=== PATIENT | female | born 1945 | race Caucasian/White ===

== ENCOUNTER → 2016-12-11 | Outpatient (CLI) | payer OTHER, MEDICARE | LOC: FIMAGING 07:44 | PROVIDERS: ATTEND Specialist | DX: Z08 Encounter for follow-up examination after completed treatment for malignant neoplasm (principal); Z85.51 Personal history of malignant neoplasm of bladder; Z85.528 Personal history of other malignant neoplasm of kidney; Z90.5 Acquired absence of kidney ==

== ENCOUNTER 2017-02-06 16:00 | Emergency (ER) | payer OTHER, MEDICARE ==
[2017-02-06 16:08] VITALS: O2SAT 96
--- NOTE | 2017-02-06 16:15 | EDPHY ---
H & P Stated Complaint: room spinning/dizzyness and nausea/has had prob with plugging l ear Time Seen by Provider: 02/06/17 16:14 HPI/ROS: CHIEF COMPLAINT: Resolved vertigo, neck pain HISTORY OF PRESENT ILLNESS: The patient presents to the ED after an episode of resolved vertigo. The patient reportedly had this while at lunch. It began abruptly at 11:30 a.m.. It was described as fairly typical peripheral vertigo with a sensation that the room was spinning and associated nausea. Her symptoms were brief and self-limited. She did have some residual neck pain following this incident. She did report some sensation of fullness in her left ear prior to the development of vertigo. She was referred to urgent care by her primary care provider given her neck pain who then ultimately referred her to the ED for further evaluation. While in the emergency department, the patient denies any acute headache, she complains of diffuse posterior neck pain which is bilateral in nature and mild. She denies any associated numbness or weakness. She denies any ongoing symptoms of vertigo. She denies any chest pain or shortness of breath. The patient has a remote history of kidney and bladder cancer treated 9 years ago and has been disease free. REVIEW OF SYSTEMS: A comprehensive 10 point review of systems is otherwise negative aside from elements mentioned in the history of present illness. Source: Patient Exam Limitations: No limitations - Personal History Current Tetanus/Diphtheria Vaccine: Yes - Medical/Surgical History Hx Asthma: No Hx Chronic Respiratory Disease: No Hx Diabetes: No Hx Cardiac Disease: No Hx Renal Disease: Yes Hx Cirrhosis: No Hx Alcoholism: No Hx HIV/AIDS: No Hx Splenectomy or Spleen Trauma: No Other PMH: kidney/bladder cancer - Social History Smoking Status: Never smoked - Physical Exam Exam: General Appearance: Alert, no distress Eyes: Pupils equal and round no pallor or injection ENT, Mouth: Mucous membranes moist Neck: No anterior tenderness, no carotid bruit, 2+ carotid pulses noted bilaterally Respiratory: There are no retractions, lungs are clear to auscultation Cardiovascular: Regular rate and rhythm Gastrointestinal: Abdomen is soft and nontender, no masses, bowel sounds normal Neurological: A&O, normal motor function, normal sensory exam, normal cranial nerves Skin: Warm and dry, no rashes Musculoskeletal: Tenderness to palpation across the posterior cervical musculature. Extremities: symmetrical, full range of motion Constitutional: Initial Vital Signs Temperature (C) 36.5 C 02/06/17 16:05 Heart Rate 82 02/06/17 16:05 Respiratory Rate 16 02/06/17 16:05 Blood Pressure 152/107 H 02/06/17 16:05 O2 Sat (%) 96 02/06/17 16:05 O2 Delivery Mode Room Air Allergies/Adverse Reactions: No Known Allergies Allergy (Unverified 02/06/17 16:05) Home Medications: Medication Instructions Recorded NK [No Known Home Meds] 02/06/17 Medical Decision Making - Diagnostics Imaging Results: Imaging Impressions Head CT 02/06/17 17:07 Impression: Normal. Findings and recommendations discussed with Armando Bauer at 1825 hour, 02/06. Final report concurs with initial preliminary interpretation. Neck CTA 02/06/17 17:07 Impression: Normal. Note: All stenoses are calculated using NASCET Criteria. Findings and recommendations discussed with Armando Bauer at 1825 hour, 02/06. Final report concurs with initial preliminary interpretation. Head CTA 02/06/17 17:08 Impression: Normal. Findings and recommendations discussed with Armando Bauer at 1825 hour, 02/06. Final report concurs with initial preliminary interpretation. ED Course/Re-evaluation: The patient presents to the after an episode of fairly typical peripheral vertigo with some mild residual neck discomfort. Given the complaints of neck pain the patient was taken for a CT angiogram of the neck to evaluate possible dissection or vascular injury. This was negative. Given her history of malignancy, a CT brain was also ordered which demonstrated no evidence of an obvious lesion. The patient's EKG demonstrated no evidence of ischemia and the patient's troponin was within normal limits. The patient underwent serial neurologic examinations by myself in the ED over 3.5 hour period. The patient's neurologic examination remains normal. Her vital signs remained stable and her workup was unremarkable. At this point time I do feel she can be safely discharged home. There is no evidence of acute coronary syndrome, central vertigo, vascular dissection or other acute abnormality. The patient will be provided customary aftercare instructions and return precautions. Differential Diagnosis: Differential diagnosis considered includes acute coronary syndrome, peripheral vertigo, central vertigo, arrhythmia, myofascial strain, vertebral artery dissection - Data Points Laboratory Results: Laboratory Results 02/06/17 16:17 02/06/17 16:17 02/06/17 02/06/17 02/06/17 16:17 16:17 16:17 WBC 5.65 10^3/uL 10^3/uL (3.80-9.50) RBC 5.46 10^6/uL H 10^6/uL (4.18-5.33) Hgb 15.7 g/dL g/dL (12.6-16.3) Hct 46.6 % % (38.0-47.0) MCV 85.3 fL fL (81.5-99.8) MCH 28.8 pg pg (27.9-34.1) MCHC 33.7 g/dL g/dL (32.4-36.7) RDW 13.0 % % (11.5-15.2) Plt Count 266 10^3/uL 10^3/uL (150-400) MPV 11.4 fL fL (8.7-11.7) Neut % (Auto) 74.3 % H % (39.3-74.2) Lymph % (Auto) 15.8 % % (15.0-45.0) [place] % (Auto) 8.1 % % (4.5-13.0) Eos % (Auto) 0.7 % % (0.6-7.6) Baso % (Auto) 0.9 % % (0.3-1.7) Nucleat RBC Rel Count 0.0 % % (0.0-0.2) Absolute Neuts (auto) 4.20 10^3/uL 10^3/uL (1.70-6.50) Absolute Lymphs (auto) 0.89 10^3/uL L 10^3/uL (1.00-3.00) Absolute Monos (auto) 0.46 10^3/uL 10^3/uL (0.30-0.80) Absolute Eos (auto) 0.04 10^3/uL 10^3/uL (0.03-0.40) Absolute Basos (auto) 0.05 10^3/uL 10^3/uL (0.02-0.10) Absolute Nucleated RBC 0.00 10^3/uL 10^3/uL (0-0.01) Immature Gran % 0.2 % % (0.0-1.1) Immature Gran # 0.01 10^3/uL 10^3/uL (0.00-0.10) Sodium 139 mEq/L mEq/L (134-144) Potassium 4.3 mEq/L mEq/L (3.5-5.2) Chloride 99 mEq/L mEq/L (97-110) Carbon Dioxide 26 mEq/l mEq/l (22-31) Anion Gap 14 mEq/L mEq/L (8-16) BUN 19 mg/dL mg/dL (7-23) Creatinine 0.9 mg/dL mg/dL (0.6-1.0) Estimated GFR > 60 Glucose 96 mg/dL mg/dL (70-100) Calcium 10.0 mg/dL mg/dL (8.5-10.4) Troponin I < 0.012 ng/mL ng/mL (0.000-0.034) Departure - Departure Disposition: Home, Routine, Self-Care Clinical Impression: Peripheral vertigo, Cervical strain Condition: Good Instructions: Vertigo (ED) Additional Instructions: 1. Return to the emergency department for any recurrent symptoms, numbness, weakness severe headache or other concerns. 2. Return to the ED for any chest pain or shortness of breath. 3. The testing in the emergency department today demonstrates no evidence of a heart attack, stroke or vascular injury. 4. Please follow-up with your primary care provider as scheduled. Referrals: Sangeetha Escamilla MD [Primary Care Provider] - As per Instructions
--- NOTE | 2017-02-06 16:22 | CPEKG ---
Heart Rate: 77 RR Interval: 779 P-R Interval: 172 QRSD Interval: 78 QT Interval: 384 QTC Interval: 435 P [place]: 68 QRS [place]: 43 T Wave [place]: 67 EKG Severity - NORMAL ECG - EKG Impression: SINUS RHYTHM Electronically Signed By: Armando Bauer 06-Feb-2017 17:59:43
[2017-02-06 16:46] LABS: % IMMATURE GRANULYOCYTES 0.2 % (0.0-1.1); ABSOLUTE IMMATURE GRANULOCYTES 0.01 10^3/uL (0.00-0.10); ADD DIFF? NO; ADD MORPH? NO; ADD SCAN? NO; ATYPICAL LYMPHOCYTE FLAG 20 (0-99); FRAGMENT RBC FLAG 30 (0-99); HEMATOCRIT 46.6 % (38.0-47.0); HEMOGLOBIN 15.7 g/dL (12.6-16.3); LEFT SHIFT FLG 0 (0-99); LIPEMIA HEMOLYSIS FLAG 80 (0-99); MEAN CELL HEMOGLOBIN 28.8 pg (27.9-34.1); MEAN CELL HEMOGLOBIN CONCENTR. 33.7 g/dL (32.4-36.7); MEAN CELL VOLUME 85.3 fL (81.5-99.8); MEAN PLATELET VOLUME 11.4 fL (8.7-11.7); PLATELET CLUMPS FLAG 20 (0-99); PLATELET COUNT 266 10^3/uL (150-400); RED BLOOD CELL COUNT 5.46 10^6/uL (4.18-5.33)
[2017-02-06 16:52] LABS: ANION GAP 14 mEq/L (8-16); CARBON DIOXIDE 26 mEq/l (22-31); CHLORIDE 99 mEq/L (97-110); CREATININE 0.9 mg/dL (0.6-1.0); GLOMERULAR FILTRATION RATE > 60; GLUCOSE 96 mg/dL (70-100); POTASSIUM 4.3 mEq/L (3.5-5.2); SODIUM 139 mEq/L (134-144)
[2017-02-06] MEDS ORDERED: IOPAMIDOL (ISOVUE 370) 100 ML BTL IV ONE (17:45)
[2017-02-06 19:43] VITALS: BP 151/97; PULSE 78; RESP 18; TEMP 98.4
== END 2017-02-06 19:44 | disposition home or self-care (01) ==
DX: S16.1XXA Strain of muscle, fascia and tendon at neck level, initial encounter (principal); H81.399 Other peripheral vertigo, unspecified ear; Z85.51 Personal history of malignant neoplasm of bladder; Z85.528 Personal history of other malignant neoplasm of kidney; X58.XXXA Exposure to other specified factors, initial encounter
CPT/HCPCS: 70450; 70496; 70498; 93005; 99285; Q9967

== ENCOUNTER → 2017-02-26 | Outpatient (CLI) | payer OTHER, MEDICARE | LOC: FIMAGING 12:41 | PROVIDERS: ATTEND Obstetrics & Gynecology | DX: R93.8 Abnormal findings on diagnostic imaging of other specified body structures (principal) | CPT/HCPCS: 76856-PO ==

== ENCOUNTER 2017-03-23 15:00 | Observation (INO) | payer OTHER, MEDICARE ==
--- NOTE | 2017-03-23 15:14 | CPEKG ---
Heart Rate: 76 RR Interval: 789 P-R Interval: 168 QRSD Interval: 76 QT Interval: 388 QTC Interval: 437 P [place]: 65 QRS [place]: 27 T Wave [place]: 63 EKG Severity - ABNORMAL ECG - EKG Impression: SINUS RHYTHM Electronically Signed By: Janes Watters 23-Mar-2017 15:37:00
[2017-03-23] MEDS ORDERED: NS 1,000 ML IV ONE (15:25)
[2017-03-23 15:30] LABS: % IMMATURE GRANULYOCYTES 0.3 % (0.0-1.1); ABSOLUTE IMMATURE GRANULOCYTES 0.01 10^3/uL (0.00-0.10); ADD DIFF? NO; ADD MORPH? NO; ADD SCAN? NO; ATYPICAL LYMPHOCYTE FLAG 10 (0-99); FRAGMENT RBC FLAG 0 (0-99); HEMATOCRIT 45.4 % (38.0-47.0); HEMOGLOBIN 15.6 g/dL (12.6-16.3); LEFT SHIFT FLG 0 (0-99); LIPEMIA HEMOLYSIS FLAG 90 (0-99); MEAN CELL HEMOGLOBIN 29.2 pg (27.9-34.1); MEAN CELL HEMOGLOBIN CONCENTR. 34.4 g/dL (32.4-36.7); MEAN CELL VOLUME 84.9 fL (81.5-99.8); MEAN PLATELET VOLUME 10.8 fL (8.7-11.7); PLATELET CLUMPS FLAG 10 (0-99); PLATELET COUNT 242 10^3/uL (150-400); RED BLOOD CELL COUNT 5.35 10^6/uL (4.18-5.33); RED CELL DISTRIBUTION WIDTH 12.4 % (11.5-15.2)
--- NOTE | 2017-03-23 15:34 | EDPHY ---
H & P Stated Complaint: bradfordkey Time Seen by Provider: 03/23/17 15:04 HPI/ROS: CHIEF COMPLAINT: Shaky, weak HISTORY OF PRESENT ILLNESS: The patient is a 71-year-old female who comes to the emergency department by ambulance complaining if she feels shaky, weak and "off". She states that she was seen here 4 weeks ago and at that time she felt slightly dizzy. Her workup was unremarkable including a negative troponin and negative CT head and CT angio head and neck and she was able to go home. She states that she did feel better but then 2 weeks later she was getting on an airplane when she felt extremely weak, shaky, nauseous and went to the [facility]. There she had an EKG, chest x-ray, echocardiogram, CT brain and MRI of her brain done. She reports that all of these tests were negative and that she was discharged home after 8 hours. She states that she continued to feel ill and she saw her primary Dr. Sangeetha Escamilla the next day. Dr. Escamilla felt that she likely had a virus and that she would feel better after about 10 days. The patient reports that she did feel better after about 10 days and that she has felt well for the last 3 days until this morning when she again began feeling shaky, weak and nauseous again. She denies chest pain. She denies shortness of breath. She denies headache. She has mild nausea but no abdominal pain. No diarrhea. No fevers. No cough. No sore throat. No runny nose. She does have a history of kidney/ bladder cancer that was resected in 2007. She also followed up with her urologist and had 1 positive urinalysis done but 2 negative urinalysis tests and eventually agreed with her primary not to take any antibiotics. She does have frequent urination but states that this is her baseline. REVIEW OF SYSTEMS: Constitutional: denies: chills, fever, recent illness, recent injury EENTM: denies: blurred vision, double vision, nose congestion Respiratory: denies: cough, shortness of breath Cardiac: denies: chest pain, irregular heart rate, lightheadedness, palpitations Gastrointestinal/Abdominal: denies: abdominal pain, diarrhea, nausea, vomiting, blood streaked stools Genitourinary: denies: dysuria, frequency, hematuria, pain Musculoskeletal: denies: joint pain, muscle pain Skin: denies: lesions, rash, jaundice, bruising Neurological: denies: headache, numbness, paresthesia, tingling, dizziness, weakness Hematologic/Lymphatic: denies: blood clots, easy bleeding, easy bruising Immunologic/allergic: denies: HIV/AIDS, transplant EXAM: GENERAL: Well-appearing, well-nourished and in no acute distress. HEAD: Atraumatic, normocephalic. EYES: Pupils equal round and reactive to light, extraocular movements intact, sclera anicteric, conjunctiva are normal. ENT: TMs normal, nares patent, oropharynx clear without exudates. Moist mucous membranes. NECK: Normal range of motion, supple without lymphadenopathy or JVD. LUNGS: Breath sounds clear to auscultation bilaterally and equal. No wheezes rales or rhonchi. HEART: Regular rate and rhythm without murmurs, rubs or gallops. ABDOMEN: Soft, nontender, normoactive bowel sounds. No guarding, no rebound. No masses appreciated. BACK: No CVA tenderness, no spinal tenderness, step-offs or deformities EXTREMITIES: Normal range of motion, no pitting or edema. No clubbing or cyanosis. NEUROLOGICAL: Cranial nerves II through XII grossly intact. Normal speech, normal gait. 5/5 strength, normal movement in all extremities, normal sensation PSYCH: Normal mood, normal affect. SKIN: Warm, dry, normal turgor, no visible rashes or lesions. Source: Patient Exam Limitations: No limitations - Medical/Surgical History Hx Asthma: No Hx Chronic Respiratory Disease: No Hx Diabetes: No Hx Cardiac Disease: No Hx Renal Disease: Yes Hx Cirrhosis: No Hx Alcoholism: No Hx HIV/AIDS: No Hx Splenectomy or Spleen Trauma: No Other PMH: kidney/bladder cancer - Family History Significant Family History: No pertinent family hx - Social History Smoking Status: Never smoked Alcohol Use: Sober Drug Use: None Constitutional: Initial Vital Signs Temperature (C) 36.9 C 03/23/17 15:08 Heart Rate 77 03/23/17 15:08 Respiratory Rate 18 03/23/17 15:08 Blood Pressure 167/102 H 03/23/17 15:08 O2 Sat (%) 92 03/23/17 15:08 O2 Delivery Mode Room Air Allergies/Adverse Reactions: No Known Allergies Allergy (Unverified 02/06/17 16:05) Home Medications: Medication Instructions Recorded NK [No Known Home Meds] 02/06/17 Medical Decision Making - Diagnostics Imaging Results: Imaging Impressions Chest X-Ray 03/23/17 15:26 Impression: No active cardiopulmonary disease seen.. Imaging: Discussed imaging studies w/ wood heel attacher Radiologist ED Course/Re-evaluation: I was able to review the patient's previous visit here as well as her echo and MRI results in [facility]. Thus far her workup has been negative. The patient is frustrated that we are simply repeating test that have already been done. She states that today she felt so weak that she was worried she could not drive her car and so pulled over to the side of the road and called her friend to pick her up. 5:20 p.m. the patient is feeling much better. She wishes to go home. Her friend is asking about a referral to Infectious Disease. I will provide this and also encouraged him to follow up with her primary doctor. I encouraged her to return if her symptoms returned. We will have her road test prior to discharge. 5:50 p.m. the patient failed her road test. She felt extremely weak. I spoke with Dr. Charito Magallanes who will admit to the hospital service. Differential Diagnosis: Partial list of the Differential diagnosis considered include but were not limited to; infection, electrolyte abnormality and although unlikely based on the history and physical exam, I also considered medication reaction, CVA, seizure, tumor, dissection. I discussed these differential diagnoses and the plan with the patient as well as the usual and expected course. The patient understands that the diagnosis is provisional and that in medicine we are not always correct and that further workup is often warranted. Usual and customary warnings were given. All of the patient's questions were answered. The patient was instructed to return to the emergency department should the symptoms at all worsen or return, otherwise to followup with the physician as we discussed. - Data Points Laboratory Results: Laboratory Results 03/23/17 15:15 03/23/17 15:15 03/23/17 03/23/17 03/23/17 16:30 16:00 15:15 WBC RBC Hgb Hct MCV MCH MCHC RDW Plt Count MPV Neut % (Auto) Lymph % (Auto) [place] % (Auto) Eos % (Auto) Baso % (Auto) Nucleat RBC Rel Count Absolute Neuts (auto) Absolute Lymphs (auto) Absolute Monos (auto) Absolute Eos (auto) Absolute Basos (auto) Absolute Nucleated RBC Immature Gran % Immature Gran # Sodium Potassium Chloride Carbon Dioxide Anion Gap BUN Creatinine Estimated GFR Glucose Calcium Magnesium Total Bilirubin Conjugated Bilirubin Unconjugated Bilirubin AST ALT Alkaline Phosphatase Troponin I Total Protein Albumin Lipase TSH 1.280 uIU/mL uIU/mL (0.465-4.680) Urine Color PALE YELLOW Urine Appearance CLEAR Urine pH 7.0 (5.0-7.5) Ur Specific [place] 1.006 (1.002-1.030) Urine Protein NEGATIVE (NEGATIVE) Urine Ketones NEGATIVE (NEGATIVE) Urine Blood NEGATIVE (NEGATIVE) Urine Nitrate NEGATIVE (NEGATIVE) Urine Bilirubin NEGATIVE (NEGATIVE) Urine Urobilinogen NEGATIVE EU EU (0.2-1.0) Ur Leukocyte Esterase TRACE H (NEGATIVE) Urine RBC 5-10 /hpf H /hpf (0-3) Urine WBC 1-3 /hpf /hpf (0-3) Ur Epithelial Cells TRACE /lpf /lpf (NONE-1+) Urine Glucose NEGATIVE (NEGATIVE) Urine Opiates Screen NEGATIVE (NEGATIVE) Urine Barbiturates NEGATIVE (NEGATIVE) Ur Phencyclidine Scrn NEGATIVE (NEGATIVE) Ur Amphetamine Screen NEGATIVE (NEGATIVE) U Benzodiazepines Scrn NEGATIVE (NEGATIVE) Urine Cocaine Screen NEGATIVE (NEGATIVE) U Marijuana (THC) Screen NEGATIVE (NEGATIVE) Ethyl Alcohol Influenza A & B (PCR) NEGATIVE FOR FLU (NEGATIVE) 03/23/17 03/23/17 03/23/17 15:15 15:15 15:14 WBC 3.69 10^3/uL L 10^3/uL (3.80-9.50) RBC 5.35 10^6/uL H 10^6/uL (4.18-5.33) Hgb 15.6 g/dL g/dL (12.6-16.3) Hct 45.4 % % (38.0-47.0) MCV 84.9 fL fL (81.5-99.8) MCH 29.2 pg pg (27.9-34.1) MCHC 34.4 g/dL g/dL (32.4-36.7) RDW 12.4 % % (11.5-15.2) Plt Count 242 10^3/uL 10^3/uL (150-400) MPV 10.8 fL fL (8.7-11.7) Neut % (Auto) 71.1 % % (39.3-74.2) Lymph % (Auto) 17.9 % % (15.0-45.0) [place] % (Auto) 7.9 % % (4.5-13.0) Eos % (Auto) 1.4 % % (0.6-7.6) Baso % (Auto) 1.4 % % (0.3-1.7) Nucleat RBC Rel Count 0.0 % % (0.0-0.2) Absolute Neuts (auto) 2.63 10^3/uL 10^3/uL (1.70-6.50) Absolute Lymphs (auto) 0.66 10^3/uL L 10^3/uL (1.00-3.00) Absolute Monos (auto) 0.29 10^3/uL L 10^3/uL (0.30-0.80) Absolute Eos (auto) 0.05 10^3/uL 10^3/uL (0.03-0.40) Absolute Basos (auto) 0.05 10^3/uL 10^3/uL (0.02-0.10) Absolute Nucleated RBC 0.00 10^3/uL 10^3/uL (0-0.01) Immature Gran % 0.3 % % (0.0-1.1) Immature Gran # 0.01 10^3/uL 10^3/uL (0.00-0.10) Sodium 139 mEq/L mEq/L (134-144) Potassium 4.1 mEq/L mEq/L (3.5-5.2) Chloride 102 mEq/L mEq/L (97-110) Carbon Dioxide 24 mEq/l mEq/l (22-31) Anion Gap 13 mEq/L mEq/L (8-16) BUN 28 mg/dL H mg/dL (7-23) Creatinine 0.8 mg/dL mg/dL (0.6-1.0) Estimated GFR > 60 Glucose 101 mg/dL H mg/dL (70-100) Calcium 9.8 mg/dL mg/dL (8.5-10.4) Magnesium 1.9 mg/dL mg/dL (1.6-2.3) Total Bilirubin 0.5 mg/dL mg/dL (0.1-1.4) Conjugated Bilirubin 0.2 mg/dL mg/dL (0.0-0.5) Unconjugated Bilirubin 0.3 mg/dL mg/dL (0.0-1.1) AST 33 IU/L IU/L (14-46) ALT 44 IU/L IU/L (9-52) Alkaline Phosphatase 76 IU/L IU/L (38-126) Troponin I < 0.012 ng/mL ng/mL (0.000-0.034) Total Protein 7.7 g/dL g/dL (6.3-8.2) Albumin 4.7 g/dL g/dL (3.5-5.0) Lipase 208 IU/L IU/L (23-300) TSH Urine Color Urine Appearance Urine pH Ur Specific [place] Urine Protein Urine Ketones Urine Blood Urine Nitrate Urine Bilirubin Urine Urobilinogen Ur Leukocyte Esterase Urine RBC Urine WBC Ur Epithelial Cells Urine Glucose Urine Opiates Screen Urine Barbiturates Ur Phencyclidine Scrn Ur Amphetamine Screen U Benzodiazepines Scrn Urine Cocaine Screen U Marijuana (THC) Screen Ethyl Alcohol < 10 mg/dL mg/dL (0-10) Influenza A & B (PCR) Medications Given: Discontinued Medications Sodium Chloride (Ns) 1,000 mls @ 0 mls/hr IV ONCE ONE; Wide Open PRN Reason: Protocol Stop: 03/23/17 15:26 Last Admin: 03/23/17 16:10 Dose: 1,000 mls Ondansetron HCl (Zofran) 4 mg IVP ONCE ONE Stop: 03/23/17 18:24 Last Admin: 03/23/17 18:26 Dose: 4 mg Departure - Departure Disposition: [facility] In[facility] Acute Clinical Impression: Generalized weakness Condition: Fair
[2017-03-23 15:38] LABS: ALANINE AMINOTRANSFERASE 44 IU/L (9-52); ALBUMIN 4.7 g/dL (3.5-5.0); ALKALINE PHOSPHATASE 76 IU/L (38-126); ANION GAP 13 mEq/L (8-16); ASPARTATE AMINOTRANSFERASE 33 IU/L (14-46); BILIRUBIN,TOTAL 0.5 mg/dL (0.1-1.4); BILIRUBIN-CONJUGATED 0.2 mg/dL (0.0-0.5); BILIRUBIN-UNCONJUGATED 0.3 mg/dL (0.0-1.1); CALCIUM 9.8 mg/dL (8.5-10.4); CARBON DIOXIDE 24 mEq/l (22-31); CHLORIDE 102 mEq/L (97-110); CREATININE 0.8 mg/dL (0.6-1.0); GLOMERULAR FILTRATION RATE > 60; GLUCOSE 101 mg/dL (70-100); MAGNESIUM 1.9 mg/dL (1.6-2.3); POTASSIUM 4.1 mEq/L (3.5-5.2); SODIUM 139 mEq/L (134-144); TOTAL PROTEIN 7.7 g/dL (6.3-8.2)
[2017-03-23 15:49] LABS: TROPONIN I < 0.012 ng/mL (0.000-0.034)
[2017-03-23 16:05] LABS: ETHANOL SERUM < 10 mg/dL (0-10)
[2017-03-23 16:36] LABS: COLOR PALE YELLOW; LEUKOCYTE ESTERASE,URINE TRACE (NEGATIVE); NITRITE,URINE NEGATIVE (NEGATIVE)
[2017-03-23] MEDS ORDERED: ONDANSETRON 4 MG/2 ML VIAL IVP ONE (18:23)
[2017-03-23] MEDS ORDERED: ONDANSETRON 4 MG/2 ML VIAL ONE (18:24)
[2017-03-23 19:33] VITALS: RESP 16
[2017-03-23] MEDS ORDERED: ACETAMINOPHEN 325 MG TAB PO PRN (21:25)
[2017-03-23] MEDS ORDERED: ONDANSETRON 4 MG/2 ML VIAL IVP PRN (21:25)
[2017-03-23] MEDS ORDERED: ZOLPIDEM TARTRATE 5 MG TAB PO PRN (21:29)
[2017-03-23] MEDS ORDERED: HYDROCODONE/APAP 5/325 TAB PO PRN (21:29)
--- NOTE | 2017-03-23 22:22 | GHP ---
[f rep st] HISTORY AND PHYSICAL DATE OF ADMISSION: 03/23/2017 CHIEF COMPLAINT: Profound acute weakness, presyncopal spells. HISTORY: The patient is a 71-year-old female, who has had 3 visits to the emergency room in the last month due to recurrent episodes of severe profound debilitating weakness. It first started 1 month ago when she was at a coffee shop, and she developed severe vertigo. She came to the emergency room, a CT angiogram of the head and neck were negative. A few weeks later she was flying to [facility], and was at [employer] and had checked through security, when suddenly she got another attack of debilitating acu te weakness, and she could no longer walk down the corridor. Paramedics were called. She did not ge t on the flight, and she was transferred to [facility]. They observed her in the emergency room for 8 hours. They did MRI of her brain and her echo that were unremarkable. She saw her [facility] doctor, who thought she had a virus, and she should eventually start to feel better. She had a couple good days and went back to the gym, started working out again on a daily basis, and thought maybe she was over it. Today, however, she had another recurrent severe event. She when out for a m eal with a friend, and on the way home could not drive because she had another attack of such profoun d weakness. She could not even sit up in a chair. Eventually she made it home. She called a friend to come over and help her. Her friend took one look at her, and she looked so terrible that the fri end immediately called 911. She has not had recurrence of vertigo since her first event, and the [facility] er 2 events are more presyncopal with associated nausea, and just such profound weakness that she can not even sit up. She has had night sweats in the last couple of days, however nothing drenching. Abeba johnson has also recently been struggling with symptoms of urinary retention and saw Dr. Durbin, her urologi st, who initially started her on Rapaflo, but then discontinued it, said that her urinary retention s tudies were negative. PAST MEDICAL HISTORY: 1. Kidney cancer status post partial nephrectomy. 2. Transitional cell carcinoma of the bladder. 3. Low white blood cell count since 2008. MEDICATIONS: Please see computer record for full detailed list. ALLERGIES: No known drug allergies. SOCIAL HISTORY: Distant smoker. Social alcohol. She lives alone. REVIEW OF SYSTEMS: Complete review of systems obtained. Review of systems is negative regarding con stitutional, HEENT, GI, pulmonary, cardiovascular, , hematology, skin, muscular, endocrine, psych, except for positives and negatives as in HPI. FAMILY HISTORY: Reviewed and noncontributory to presenting complaint. PHYSICAL EXAMINATION: GENERAL: Well-developed, well-nourished female, in no distress temperature 36 .6, pulse 79, blood pressure 116/52, saturating 92% on room air. HEENT: Normal conjunctivae. Pupil s equal, reactive to light. ENT: Normal ears and nose. Hearing intact. Normal teeth. Oropharynx moist. NECK: Trachea midline. No thyromegaly. CHEST: Normal respiratory effort. LUNGS: Clear t o auscultation bilaterally. CARDIOVASCULAR: Regular rhythm. No murmur. No extremity edema. ABDOM EN: Soft, nontender. No hepatosplenomegaly. SKIN: Warm, dry, intact. No rash. MUSCULOSKELETAL: No cyanosis or clubbing. Strength 5/5 upper and lower extremities. NEUROLOGIC: Cranial nerves int act. Normal sensation to light touch. PSYCH: Alert and oriented x3. Normal mood and affect. Norm al judgment. Normal memory. LABORATORY DATA: White count 3.69, hematocrit 45.4, platelets 242, sodium 139, potassium 4.1, chlori de 102, bicarb 24, BUN 20, creatinine 0.8, glucose 101. LFTs are negative. TSH is 1.2. Troponins n egative. Urinalysis is negative. Chest x-ray is negative. EKG viewed by me. My personal interpretation is normal sinus rhythm, some anterior T-wave inversions in V1 and V2. ASSESSMENT/PLAN: 1. Recurrent severe presyncopal episodes. She has also had kind of a more generalized debilitating weakness for the last month, and she has barely left her home. She has previously had an echocardiog yimi that was negative. She has not, however, had an ischemic evaluation. Could also consider an out patient Holter monitor. For now, we will watch her on telemetry overnight, and follow serial troponi ns. She does have some significant anterior T-wave inversions that need further evaluation. I will order a treadmill stress test with nuclear images in the morning. We will also check a D-dimer. If her above workup is unrevealing, could consider PE workup. Although, she is not hypoxic or tachycard ic. It also sounds like it may be an atypical viral infection. We will check EBV and CMV serologies . 2. Leukopenia, per patient chronic and stable since 2008. 3. Transitional cell carcinoma of the bladder, status post resection. She is now having symptoms of urinary retention. We will follow postvoid residuals. CODE STATUS: Full. ADMISSION STATUS: We will admit to observation. Depending on the clinical course, will determine le ngth of hospitalization needed. DVT PROPHYLAXIS: She is high risk. We will place her on subcu Lovenox. /[id number]/MODL
[2017-03-24] MEDS: NS 1,000 ML IV SCH ×2 (00:52→09:04)
--- NOTE | 2017-03-24 05:59 | CPEKG ---
Heart Rate: 63 RR Interval: 952 P-R Interval: 204 QRSD Interval: 84 QT Interval: 424 QTC Interval: 435 P [place]: 54 QRS [place]: 42 T Wave [place]: 64 EKG Severity - BORDERLINE ECG - EKG Impression: SINUS RHYTHM EKG Impression: BORDERLINE T ABNORMALITIES, ANT-LAT LEADS Electronically Signed By: Cal Fu 24-Mar-2017 09:25:36
[2017-03-24 07:25] LABS: C-REACTIVE PROTEIN < 5.0 mg/L (<10.0); CHOLESTEROL 205 mg/dL (140-220); CHOLESTEROL/HDL RATIO 4.18 RATIO (1.00-4.44); HIGH DENSITY LIPOPROTEIN 49 mg/dL (40-85); LDL/HDL RATIO 2.78 RATIO (1.00-3.22); LOW DENSITY LIPOPROTEIN 136 mg/dL (80-100); NON-HIGH DENSITY LIPOPROTEIN 156 mg/dL (90-129); TRIGLYCERIDE 104 mg/dL (35-135); VERY LOW DENSITY LIPOPROTEINS 20 mg/dL (8-25)
[2017-03-24 07:34] LABS: TROPONIN I < 0.012 ng/mL (0.000-0.034)
[2017-03-24 07:53] LABS: CORTISOL-AM 7.2 ug/dL (4.5-22.7)
[2017-03-24] MEDS ORDERED: ENOXAPARIN 40 MG/0.4 ML SYR SC SCH (09:00)
--- NOTE | 2017-03-24 11:24 | CPR ---
[f rep st] NONINVASIVE CARDIAC PROCEDURE REPORT DATE OF PROCEDURE: 03/24/2017 CHIEF COMPLAINT: Near syncope. PROCEDURE: Nuclear stress test. FINDINGS: After informed consent, patient was placed on Murphy protocol. She exercised for a total o f 6 minutes on a Murphy protocol, with maximum heart rate 140, maximum blood pressure 180/90. Nuclear tracer was injected without incident. She had no symptoms or arrhythmias or chest pain. In recover y, she recovered to the baseline state without problems. CONCLUSION: Negative exercise portion of nuclear stress test. Nuclear imaging will be dictated unde r separate report. Results given to the patient here. Questions answered. /[id number]/MODL
[2017-03-24 12:04] VITALS: BP 134/82; PULSE 63; TEMP 98.2; O2SAT 90
--- NOTE | 2017-03-24 14:04 | GDS ---
[f rep st] DISCHARGE SUMMARY FINAL DIAGNOSES: 1. Intermittent profound weakness. 2. History of transitional cell carcinoma of the bladder. 3. Leukopenia which is chronic and stable. HISTORY OF PRESENT ILLNESS: A 71-year-old female who presents with now the 3rd episode in about 3 mo nths of this severe intermittent weakness. She has been worked up previously here with CT angiogram of the head and neck which were normal, MRI of the brain at the [facility] which was reported as norm al, echocardiogram which was reported normal from the [facility]. She presented again with similar s ymptoms. HOSPITAL COURSE: She underwent cardiac evaluation including telemetry monitoring which showed no arr hythmias and a nuclear stress test. This was normal. She has been seen by Cardiology as well. Conor mmend that she get a 30 day event monitor. She has the number to call [facility] tomorrow to sche dule this. Pending at the time of discharge is EBV, CMV as this may be a viral syndrome as well as H IV. She is aware of these pending tests and will follow up on them with Dr. Escamilla her PCP. She is discharged in stable condition. /[id number]/MODL
--- NOTE | 2017-03-24 17:45 | ASDISCHSUM ---
Discharge Information Plan Status:Home with No Needs Medically Cleared to Leave:03/24/2017 Discharge Date:03/24/2017 02:52 PM CM D/C Disposition:Home, Routine, Self-Care ADT D/C Disposition:Home, Routine, Self-Care Projected Discharge Date:03/24/2017 02:52 PM Transportation at D/C:Family Discharge Delay Reason: Follow-Up Date:03/24/2017 02:52 PM Discharge Slot:2 - 12:01 pm - 18:00 pm Final Diagnosis:Weakness, hx of transitional cell carcinoma of bladder, leukopenia Placement Information Patient Contact Information Contact Name:IMMANUEL Relationship: Address: City:[place] Alternate Phone: State/Zip Code:[place] Email: Financial Information Financial Class: Primary Plan Desc:MEDICARE OUTPATIENT Primary Plan Number:[id number] Secondary Plan Desc:[employer]/M[employer] SUPPLEMENT Secondary Plan Number:[id number] Assessment Information [facility] CM Progress Note CM Note CM Note Notes: Late entry: Reviewed chart, spoke w/ [facility] Russ re: d/c poc, pt's progress. Pt admitted w/ severe weakness; hx of transitional cell carcinoma of bladder and leukpenia. Pt has recently undergone several studies including a CT angio of head and neck, an MRI of the brain, and an echo, all of which were normal. She is s/p a heart cath, which was normal as well. She has several lab tests pending. Per MD notes, pt will discharge home independently w/ family support and no identified needs. Pt should f/u as directed. No IM signed, admission <48 hrs. CM avail for any further issues or concerns. Date Signed: 03/24/2017 05:44 PM Electronically Signed By:Hillary Morelos RN Intervention Information
[2017-03-26 14:17] LABS: ANTI EBNA Positive (Negative); ANTI VCA/IgG Positive (Negative); ANTI VCA/IgM Negative (Negative)
== END 2017-03-24 14:52 | disposition home or self-care (01) ==
LOC: EDUNIT# → F1N 18:41
PROVIDERS: ADMIT Internal Medicine; ATTEND Internal Medicine
DX: R53.1 Weakness (principal); D72.819 Decreased white blood cell count, unspecified; Z85.51 Personal history of malignant neoplasm of bladder
CPT/HCPCS: 71020; 78451; 93005; 93017; 97161; A9500; G0378; G8978; G8979; G8980; J2405; 80305; 86644-90; 86645-90; 86664-90; 86665-90; G0480

== ENCOUNTER → 2017-04-25 | Outpatient (CLI) | payer OTHER, MEDICARE | LOC: FIMAGING 10:21 | PROVIDERS: ATTEND Internal Medicine Hematology & Oncology | DX: K76.9 Liver disease, unspecified (principal); C64.1 Malignant neoplasm of right kidney, except renal pelvis; C67.9 Malignant neoplasm of bladder, unspecified ==

== ENCOUNTER → 2017-05-14 | Outpatient (CLI) | payer OTHER, MEDICARE | LOC: FIMAGING 04-03 15:42 | PROVIDERS: ATTEND Internal Medicine | DX: Z12.31 Encounter for screening mammogram for malignant neoplasm of breast (principal) | CPT/HCPCS: G0202 ==

== ENCOUNTER → 2018-05-30 | Outpatient (CLI) | payer OTHER, MEDICARE | LOC: FIMAGING 12:51 | PROVIDERS: ATTEND Internal Medicine | DX: Z12.31 Encounter for screening mammogram for malignant neoplasm of breast (principal) ==

== ENCOUNTER → 2018-08-12 | Outpatient (CLI) | payer OTHER, MEDICARE | LOC: BMCIMAGING 13:55 | PROVIDERS: ATTEND Physician Assistant | DX: M24.851 Other specific joint derangements of right hip, not elsewhere classified (principal); M24.852 Other specific joint derangements of left hip, not elsewhere classified ==

== ENCOUNTER → 2018-09-12 | Outpatient (CLI) | payer OTHER, MEDICARE | LOC: FIMAGING 07:22 | PROVIDERS: ATTEND Internal Medicine Hematology & Oncology | DX: R10.13 Epigastric pain (principal); Z85.528 Personal history of other malignant neoplasm of kidney; Z90.5 Acquired absence of kidney ==